=== PATIENT | male | born 1970 | race American Indian/Alaskan Native ===

== ENCOUNTER 2018-10-24 07:42 | Day surgery (SDC) | payer OTHER ==
--- NOTE | 2018-10-23 12:23 | Anesthesia Consultation ---
Anesthesia Consult and Med Hx Date of service: 10/23/18 - Airway Anesthetic Teeth Evaluation: Good, Crowns ROM Head & Neck: Adequate Mental/Hyoid Distance: Adequate Mallampati Class: Class II Intubation Access Assessment: Good - Pulmonary Exam CTA: Yes - Cardiac Exam Cardiac Exam: No Murmur - Pre-Operative Health Status ASA Pre-Surgery Classification: ASA2 Proposed Anesthetic Plan: General - Pulmonary Hx Smoking: Yes (STOPPED 1990- ONLY SMOKED X 1 YR) Hx Sleep Apnea: Yes (DX SLEEP APNEA WITH CPAP USE.) - Cardiovascular System Hx Hypertension: No (RECENT HBP, NO DX YET , NO MEDS) - Central Nervous System Hx Back Pain: Yes - Gastrointestinal Hx Gastroesophageal Reflux Disease: No - Other Systems Hx Alcohol Use: Yes (1-2 DRINKS PER DAY) Hx Cancer: No
[~2018-10-24 07:42] MED LIST: ANTIBIOTIC OINT TP ONE; DECADRON ONE; DIPRIVAN 10 MG/ML IV ONE; MARCAINE 0.25% INFILTRATI ONE; NEO SYNEPHRINE/NS Syringe(OR USE) IV ONE; ROBINUL ONE; SUBLIMAZE ONE; TRIPLE ANTIBIOTIC TP ONE; XYLOCAINE MPF 2% ONE
[2018-10-24] MEDS ORDERED: LACTATED RINGERS 1,000 ML IV SCH (08:00)
[2018-10-24] MEDS ORDERED: NEURONTIN ONE (08:20)
--- NOTE | 2018-10-24 08:23 | Anesthesia Day of Surgery ---
Anesthesia Day of Surgery - Day of Surgery Patient Examined: Yes Patient H&P Reviewed: Yes Patient is NPO: Yes Beta Blockers: No Cardiac Clearance: No Pulmonary Clearance: No Jake's Test: N/A
[2018-10-24] MEDS ORDERED: PEPCID IV NR (09:00)
[2018-10-24] MEDS ORDERED: LEVAQUIN 500MG/100ML 500 MG/100 ML BAG IV NR (10:00)
[2018-10-24] MEDS ORDERED: VERSED ONE (10:03)
[2018-10-24] MEDS ORDERED: NACL 0.9% IR ONE (10:25)
[2018-10-24] MEDS ORDERED: SUBLIMAZE ONE (10:37)
--- NOTE | 2018-10-24 11:28 | Post Operative Note ---
Date of procedure: 10/24/18 Pre-op diagnosis: balanitis Post-op diagnosis: same Findings: inflam Procedure: circ Anesthesia: GETA Surgeon: SANDRA CASPER Estimated blood loss: minimal Pathology: list (skin) Specimen disposition: to lab Condition: stable Disposition: PACU
--- NOTE | 2018-10-24 11:31 | Discharge Summary ---
Short Stay Discharge Plan Activity: other (no sex ) Weight Bearing Status: Full Weight Bearing Diet: low fat, low salt Wound: open to air Special Instructions: other (remove dressing 6 pm tonight ) Durable Medical Equipment Needed Upon Discharge: other (ice in rr and today ) Follow up with: TESFAYE SEVILLA MD, PHD [Primary Care Provider] - 7 Days SANDRA CASPER MD [Staff Physician] - 14 Days
--- NOTE | 2018-10-24 12:40 | Operative Report ---
PREOPERATIVE DIAGNOSIS: Recurrent balanitis. POSTOPERATIVE DIAGNOSIS: Recurrent balanitis. PROCEDURE PERFORMED: Circumcision, sleeve technique. SURGEON: Faheem Grimaldo MD ANESTHESIA: General. FINDINGS: This is a gentleman with recurrent inflammation on the glans now presents for circumcision. All risks and complications discussed. DESCRIPTION OF PROCEDURE: The patient was brought to the operating room and placed on the operating table. Following induction of anesthesia, placed in the supine position, prepped and draped in usual sterile fashion. Two incisions were made, a penile incision, then ____ incision and these were connected dorsally. He had a large amount of excess skin, which was excised. Hemostasis was assured with ties and cautery as needed. Sutures were placed at 12, 3, 6, and 9 o'clock position. Each quadrant was bisected with 3-0 chromic. The patient tolerated the procedure well. No significant complications. Wound was irrigated before closure and brought to recovery room with a loose dressing and in stable condition. JOB# [id number] KATI/KAM
[2018-10-25 18:39] VITALS: BP 126/78
== END 2018-10-24 07:43 | disposition home or self-care (01) ==
LOC: OR 07:42
PROVIDERS: ATTEND Urology
DX: N48.1 Balanitis (principal); G43.909 Migraine, unspecified, not intractable, without status migrainosus; G47.30 Sleep apnea, unspecified; F41.9 Anxiety disorder, unspecified; Z79.899 Other long term (current) drug therapy; Z88.0 Allergy status to penicillin; Z87.891 Personal history of nicotine dependence; Z79.82 Long term (current) use of aspirin; Z72.89 Other problems related to lifestyle; Z86.2 Personal history of diseases of the blood and blood-forming organs and certain disorders involving the immune mechanism
CPT/HCPCS: 54161; 88304; J1100; J1956; J2250; J2370; J2704; J3010; J7120; A6250